=== PATIENT | female | born 1985 | race Caucasian/White ===

== ENCOUNTER 2016-06-05 10:29 | Emergency (ER) | payer OTHER ==
[2016-06-05 09:56] LABS: INFLUENZA A NEG (NEG); INFLUENZA B NEG (NEG)
[~2016-06-05 10:29] MED LIST: ATIVAN PO; ATIVAN0.5 MG PO; BACTRIM DS TABL1 TA2 PO; CELEXA; CELEXA PO; FLEXERIL10 MG PO; FLONASE16 GM; IBUPROFEN800 MG PO; IMITREX; IMITREX PO; IMITREX50 MG PO; LORTAB 5/500 TA1 TA1 PO; MAXALT MLT10 MG/TAB; MEDROL DOSEPAK4 MG PO; NORCO1 TAB 10/3 PO; PERCOCET7.5 PO; SEROQUEL25 MG PO; SINGULAIR PO; TOPAMAX PO; TYLENOL #3 PO; VICODIN 5/500 T1 TAB PO; VOLTAREN50 MG PO; ZOFRAN ODT4 MG PO; ZOLOFT PO; ZOLOFT50 MG PO; ZYRTEC; [UNRECOGNIZED DRUG - OTHER] PO
[2016-06-05 10:33] LABS: URINE SOURCE CLEAN CATCH
[2016-06-05 10:40] LABS: URINE APPEARANCE CLEAR; URINE BILIRUBIN NEG (NEG); URINE BLOOD NEG (NEG); URINE COLOR YELLOW; URINE GLUCOSE NEG (NORM); URINE KETONE NEG (NEG); URINE LEUKOCYTE ESTERASE NEG (NEG); URINE NITRATE NEG (NEG); URINE PH 5.5 (5-8)
[2016-06-05 10:41] LABS: MICRO INDICATED? NO; URINE PROTEIN NEG (NEG)
[2016-06-05 11:15] LABS: BASOPHIL% 0.2 % (0-2.5); EOSINOPHIL# 0.3 X10e3 (0-0.7); HEMATOCRIT 41.1 % (35.0-45.0); HEMOGLOBIN 13.6 gm/dL (12.0-16.0); LYMPHOCYTE# 0.7 X10e3 (1.0-3.5); LYMPHOCYTE% 8.6 % (17.0-45.0); MEAN CELL VOLUME 85.4 FL (83-96); MEAN CORPUSCULAR HEMOGLOBIN 28.1 PG (28-34); MEAN PLATELET VOLUME 8.7 FL (6.5-11.5); MONOCYTE# 0.2 X10e3 (0-1.0); MONOCYTE% 2.5 % (3.0-12.0); NEUTROPHIL# 6.7 X10e3 (1.5-7.1); NEUTROPHIL% 84.7 % (40-75); PLATELET COUNT 242 X10e3 (140-420); RED BLOOD COUNT 4.82 X10e (3.90-5.30); RED CELL DISTRIBUTION WIDTH 13.5 % (11.0-15.5); WHITE BLOOD COUNT 7.9 X10e3 (4.0-10.5)
[2016-06-05 11:18] LABS: DIFF IND NO
[2016-06-05 11:35] LABS: ALKALINE PHOSPHATASE 71 U/L (32-92); ALT (SGPT) 37 U/L (10-40); AST (SGOT) 37 U/L (10-42); BILIRUBIN,TOTAL 0.5 mg/dL (0.2-2.0); BLOOD UREA NITROGEN 14 mg/dL (9-23); CALCIUM SERUM 8.5 mg/dL (8.4-10.2); CARBON DIOXIDE 26 mmol/L (22-31); CHLORIDE 99 mmol/L (100-111); CREATININE SERUM 0.8 mg/dL (0.6-1.4); GLOM FILT RATE Estimated ABOVE60 mL/min (>60); GLUCOSE FASTING 100 mg/dL (70-110); LIPASE 15 U/L (22-51); POTASSIUM 3.5 mmol/L (3.5-5.1); PROTEIN TOTAL SERUM 6.5 g/dL (6.0-8.3); SODIUM 135 mmol/L (135-145)
== END 2016-06-05 14:06 | disposition home or self-care (01) ==
LOC: SED 10:29
PROVIDERS: Emergency Medicine; Nurse Practitioner
DX: B34.9 Viral infection, unspecified (principal); B09 Unspecified viral infection characterized by skin and mucous membrane lesions; G43.909 Migraine, unspecified, not intractable, without status migrainosus; F17.200 Nicotine dependence, unspecified, uncomplicated; Z98.890 Other specified postprocedural states; Z88.0 Allergy status to penicillin
CPT/HCPCS: 36415; 80053; 81003; 83690; 84703; 85025; 86308; 86618; 87804; 96374; 96375; 99284; J1885; J2405